=== PATIENT | female | born 1985 ===

== ENCOUNTER 2018-10-16 07:38 | Inpatient (IN) | payer BC ==
[2018-10-16] MEDS ORDERED: Ondansetron 4 MG/2 ML SDV IV PRN (18:57)
[2018-10-16] MEDS ORDERED: Misoprostol 25 MCG (1/4 of 100 MCG) Tab PO PRN (18:57)
[2018-10-16] MEDS ORDERED: Nalbuphine 10 MG/1 ML Vial IVPUSH PRN (18:57)
[2018-10-16] MEDS ORDERED: Misoprostol 200 MCG Tab PO PRN (18:57)
[2018-10-16] MEDS ORDERED: Sodium Chloride 0.9% 10 ML Syringe FLUSH PRN (18:57)
[2018-10-16] MEDS ORDERED: Terbutaline 1 MG/ML SDV SUBCUT PRN (18:57)
[2018-10-16] MEDS ORDERED: Methylergonovine 0.2 MG/1 ML Amp IM PRN (18:57)
[2018-10-16] MEDS ORDERED: Sodium Chloride 0.9% 10 ML SDV IV PRN (18:57)
[2018-10-16] MEDS ORDERED: Water For Irrigation,Sterile 1,000 ML Container IRR PRN (18:57)
[2018-10-16] MEDS ORDERED: Tranexamic Acid 1,000 MG in Sodium Chloride 0.9% 100 ML IV PRN (18:57)
[2018-10-16] MEDS ORDERED: Misoprostol 25 MCG (1/4 of 100 MCG) Tab VAG PRN (18:57)
[2018-10-16] MEDS ORDERED: Carboprost Tromethamine 250 MCG/1 ML Amp IM PRN (18:57)
[2018-10-16] MEDS ORDERED: Lidocaine 1% 50 ML MDV INJECT PRN (18:57)
[2018-10-16] MEDS ORDERED: Oxytocin/0.9 % Sodium Chloride 30 UNIT/500 ML BAG IV SCH ×2 (19:00)
[2018-10-16] MEDS ORDERED: Lactated Ringers 1,000 ML IV SCH (19:00)
--- NOTE | 2018-10-16 20:16 | PCM.LDHP ---
L&D History of Present Illness - General Date of Service: 10/16/18 Admit Problem/Dx: Patient Status Order with Admit Dx/Problem 10/16/18 18:57 Patient Status [ADT] Routine Admission Diagnosis/Problem Admission Diagnosis/Problem -related examination 10/16/18 20:10 33yo EDC 10/13/2018 40 3/7wks, O+, RI, GBS neg. IOL for post dates. Source of Information: Patient History Limitations: Reports: No Limitations - History of Present Illness Improves with: Reports: None Worsens with: Reports: None Associated Symptoms: Reports: N - Related Data Allergies/Adverse Reactions: Allergies Allergy/AdvReac Type Severity Reaction Status Date / Time Penicillins Allergy Other Verified 10/16/18 18:55 H&P Review of Systems - Review of Systems: Review Of Systems: See Below General: Reports: No Symptoms HEENT: Reports: No Symptoms Pulmonary: Reports: No Symptoms Cardiovascular: Reports: No Symptoms Gastrointestinal: Reports: No Symptoms Genitourinary: Reports: No Symptoms Musculoskeletal: Reports: No Symptoms Skin: Reports: No Symptoms Psychiatric: Reports: No Symptoms Neurological: Reports: No Symptoms Hematologic/Lymphatic: Reports: No Symptoms Immunologic: Reports: No Symptoms L&D Exam - Exam Exam: See Below - Vital Signs Weight: 67.132 kg - OB Specific Contraction Intensity: Mild Movement: Active Heart Tones: Present Heart Tones per Min: 140 Heart Rate (FHR) Variability: Moderate (6-25 bmp) Presentation: Vertex - Guzman Score Guzman Score Cervix Position: Midposition Guzman Score Consistency: Soft Guzman Score Effacement: >80% Guzman Score Dilation: 3-4 cm Guzman Score 's Station: -2 Guzman Score Total: 9 - Exam General: Alert, Oriented, Cooperative HEENT: Hearing Intact Lungs: Clear to Auscultation, Normal Respiratory Effort Cardiovascular: Regular Rate, Regular Rhythm, Normal S1, Normal S2 GI/Abdominal Exam: Soft, Non-Tender Rectal Exam: Deferred Genitourinary: Normal external exam, Normal bimanual exam, Cervical dilitation Back Exam: Normal Inspection, Full Range of Motion Extremities: Normal Range of Motion, Non-Tender, No Pedal Edema Skin: Warm, Dry, Intact Neurological: Cranial Nerves Intact, Strength Equal Bilateral, Normal Speech, Normal Tone Psychiatric: Alert, Normal Affect, Normal Mood - Patient Data Lab Results Last 24 hrs: Laboratory Results - last 24 hr 10/16/18 Range/Units 19:20 WBC 5.38 (4.0-11.0) K/uL RBC 4.40 (4.30-5.90) M/uL Hgb 11.6 L (12.0-16.0) g/dL Hct 36.5 (36.0-46.0) % MCV 83.0 (80.0-98.0) fL MCH 26.4 L (27.0-32.0) pg MCHC 31.8 (31.0-37.0) g/dL RDW Std Deviation 48.1 (28.0-62.0) fl RDW Coeff of Hannah 16 H (11.0-15.0) % Plt Count 200 (150-400) K/uL MPV 10.90 (7.40-12.00) fL Nucleated RBC % 0.0 /100WBC Nucleated RBCs # 0 K/uL Result Diagrams: 10/16/18 19:20 - Problem List (1) Supervision of normal IUP (intrauterine ) in primigravida SNOMED Code(s): 34503256, 304749857, 913674958, 541296049 ICD Code: Z34.00 - ENCNTR FOR SUPRVSN OF NORMAL FIRST , UNSP TRIMESTER Status: Acute Current Visit: Yes Qualifiers: Trimester: third trimester Qualified Code(s): Z34.03 - Encounter for supervision of normal first , third trimester Problem List Initiated/Reviewed/Updated: Yes Orders Last 24hrs: Active Orders 24 hr Category Date Time Status Patient Status [ADT] Routine ADT 10/16/18 18:57 Active Bedrest Bathroom Privileges [RC] ASDIRECTED Care 10/16/18 18:57 Active Communication Order [RC] ASDIRECTED Care 10/16/18 18:57 Active Communication Order [RC] ASDIRECTED Care 10/16/18 18:57 Active Communication Order [RC] ASDIRECTED Care 10/16/18 18:57 Active Heart Tones [RC] CONTINUOUS Care 10/16/18 18:57 Active Non Stress Test [RC] PER UNIT ROUTINE Care 10/16/18 18:57 Active May Shower [RC] ASDIRECTED Care 10/16/18 18:57 Active Notify Provider [RC] PRN Care 10/16/18 18:57 Active Notify Provider [RC] PRN Care 10/16/18 18:57 Active Notify Provider [RC] PRN Care 10/16/18 18:57 Active Notify Provider [RC] STAT Care 10/16/18 18:57 Active Oxygen Therapy [RC] ASDIRECTED Care 10/16/18 18:57 Active Up ad Rubi [RC] ASDIRECTED Care 10/16/18 18:57 Active Vaginal Exam [RC] PRN Care 10/16/18 18:57 Active Vaginal Exam [RC] PRN Care 10/16/18 18:57 Active Vital Signs [RC] PER UNIT ROUTINE Care 10/16/18 18:57 Active Vital Signs [RC] PER UNIT ROUTINE Care 10/16/18 18:57 Active Regular Diet [DIET] Diet 10/16/18 Breakfast Active TYPE AND SCREEN [BBK] Routine Lab 10/16/18 19:20 Received Carboprost Tromethamine [Hemabate DS] Med 10/16/18 18:57 Active 250 mcg IM ASDIRECTED PRN Lactated Ringers [Ringers, Lactated] 1,000 ml Med 10/16/18 19:00 Active IV ASDIRECTED Lidocaine 1% [Xylocaine 1%] Med 10/16/18 18:57 Active 50 ml INJECT ONETIME PRN Methylergonovine [Methergine] Med 10/16/18 18:57 Active 0.2 mg IM ASDIRECTED PRN Nalbuphine [Nubain] Med 10/16/18 18:57 Active 10 mg IVPUSH Q1H PRN Ondansetron [Zofran] Med 10/16/18 18:57 Active 4 mg IV Q4H PRN Oxytocin/0.9 % Sodium Chloride [Oxytocin 30 Unit/500 ML Med 10/16/18 19:00 Active -NS] 30 unit in 500 ml IV TITRATE Oxytocin/0.9 % Sodium Chloride [Oxytocin 30 Unit/500 ML Med 10/16/18 19:00 Active -NS] 30 unit in 500 ml IV TITRATE Sodium Chloride 0.9% [Normal Saline] Med 10/16/18 18:57 Active 10 ml IV ASDIRECTED PRN Sodium Chloride 0.9% [Saline Flush] Med 10/16/18 18:57 Active 10 ml FLUSH ASDIRECTED PRN Terbutaline [Brethine] Med 10/16/18 18:57 Active 0.25 mg SUBCUT ASDIRECTED PRN Tranexamic Acid [Cyklokapron] 1,000 mg Med 10/16/18 18:57 Active Sodium Chloride 0.9% [Normal Saline] 100 ml IV ONETIME Water For Irrigation,Sterile [Sterile Water for Med 10/16/18 18:57 Active Irrigation] 1,000 ml IRR ASDIRECTED PRN miSOPROStol [Cytotec] Med 10/16/18 18:57 Active 200 mcg PO ONETIME PRN miSOPROStol [Cytotec] Med 10/16/18 18:57 Active 25 mcg PO Q4H PRN miSOPROStol [Cytotec] Med 10/16/18 18:57 Active 25 mcg VAG Q4H PRN Scalp Electrode [WOMSER] Per Unit Routine Oth 10/16/18 18:57 Ordered Medication Administration Instruction [OM.PC] Q3H Oth 10/16/18 19:00 Ordered Peripheral IV Insertion Adult [OM.PC] Routine Oth 10/16/18 18:57 Ordered Resuscitation Status Routine Resus Stat 10/16/18 18:57 Ordered Medication Orders Carboprost Tromethamine (Hemabate Ds) 250 mcg IM ASDIRECTED PRN PRN Reason: Post Hemorrhage Lactated Ringer's (Ringers, Lactated) 1,000 mls @ 150 mls/hr IV ASDIRECTED [place] Oxytocin/Sodium Chloride (Oxytocin 30 Unit/500 Ml-Ns) 30 unit in 500 mls @ 999 mls/hr IV TITRATE [place] Oxytocin/Sodium Chloride (Oxytocin 30 Unit/500 Ml-Ns) 30 unit in 500 mls @ 2 mls/hr IV TITRATE [place]; Protocol Tranexamic Acid 1,000 mg/ (Sodium Chloride) 110 mls @ 660 mls/hr IV ONETIME PRN PRN Reason: Bleeding Lidocaine HCl (Xylocaine 1%) 50 ml INJECT ONETIME PRN PRN Reason: Laceration repair Methylergonovine Maleate (Methergine) 0.2 mg IM ASDIRECTED PRN PRN Reason: Post Hemorrhage Misoprostol (Cytotec) 200 mcg PO ONETIME PRN PRN Reason: Post Hemorrhage Misoprostol (Cytotec) 25 mcg PO Q4H PRN PRN Reason: Cervical Ripening Misoprostol (Cytotec) 25 mcg VAG Q4H PRN PRN Reason: Cervical Ripening Nalbuphine HCl (Nubain) 10 mg IVPUSH Q1H PRN PRN Reason: Pain (severe 7-10) Ondansetron HCl (Zofran) 4 mg IV Q4H PRN PRN Reason: Nausea/Vomiting Sodium Chloride (Saline Flush) 10 ml FLUSH ASDIRECTED PRN PRN Reason: Keep Vein Open Sodium Chloride (Normal Saline) 10 ml IV ASDIRECTED PRN PRN Reason: IV Use Sterile Water (Sterile Water For Irrigation) 1,000 ml IRR ASDIRECTED PRN PRN Reason: delivery Terbutaline Sulfate (Brethine) 0.25 mg SUBCUT ASDIRECTED PRN PRN Reason: Tacysystole Assessment/Plan Comment:: IOL A: 33yo EDC 10/13/2018 40 3/7wks, O+, RI, GBS neg. IOL for post dates. SVE 3-4/80/-2 soft mid (Guzman 8). AROM scant fluid P: Admit, SROM, pitocin if no labor within 4 hours, Anticipate , Dr Becerril updated.
[2018-10-17] MEDS ORDERED: Oxytocin 10 Units/1 ML SDV ONE (07:46)
--- NOTE | 2018-10-17 08:03 | PCM.DEL ---
L & D Note - General Info Date of Service: 10/17/18 Mother's Due Date: 10/13/18 - Delivery Note Labor: Induced by ARM Delivery Outcome: Livebirth Delivery Method: Spontaneous Vaginal Delivery-Single Infant Delivery Mode: Spontaneous Presentation: Vertex Nuchal Cord: None Anesthesia Type: None Episiotomy Type: None Laceration: None Placenta: Intact, Spontaneous Cord: 3 Vessels Estimated Blood Loss: 150 Resuscitation Needed: No : Stimulated Score 1 min: 8 Score 5 min: 9 Second Stage Interventions: Reports: Pushing, Left Side Delivery Comments (Free Text/Narrative):: of viable female, delivered by RN due to 7cm to delivered in under 20 min. APGARS 8/9, Wt pending, EBL 150cc, intact perineum. Mom and baby stable - General Info Date of Service: 10/17/18 Admission Dx/Problem (Free Text): Patient Status Order with Admit Dx/Problem 10/16/18 18:57 Patient Status [ADT] Routine Admission Diagnosis/Problem Admission Diagnosis/Problem -related examination 10/16/18 20:10 33yo EDC 10/13/2018 40 3/7wks, O+, RI, GBS neg. IOL for post dates. Functional Status: Reports: Pain Controlled - Review of Systems General: Reports: No Symptoms HEENT: Reports: No Symptoms Pulmonary: Reports: No Symptoms Cardiovascular: Reports: No Symptoms Gastrointestinal: Reports: No Symptoms Genitourinary: Reports: No Symptoms Musculoskeletal: Reports: No Symptoms Skin: Reports: No Symptoms Neurological: Reports: No Symptoms Psychiatric: Reports: No Symptoms - Patient Data Weight - Most Recent: 65.771 kg Lab Results Last 24 Hours: Laboratory Results - last 24 hr 10/16/18 10/16/18 Range/Units 19:20 19:20 WBC 5.38 (4.0-11.0) K/uL RBC 4.40 (4.30-5.90) M/uL Hgb 11.6 L (12.0-16.0) g/dL Hct 36.5 (36.0-46.0) % MCV 83.0 (80.0-98.0) fL MCH 26.4 L (27.0-32.0) pg MCHC 31.8 (31.0-37.0) g/dL RDW Std Deviation 48.1 (28.0-62.0) fl RDW Coeff of Hannah 16 H (11.0-15.0) % Plt Count 200 (150-400) K/uL MPV 10.90 (7.40-12.00) fL Nucleated RBC % 0.0 /100WBC Nucleated RBCs # 0 K/uL Blood Type O POSITIVE Antibody Screen NEGATIVE Med Orders - Current: Current Medications Carboprost Tromethamine (Hemabate Ds) 250 mcg IM ASDIRECTED PRN PRN Reason: Post Hemorrhage Lactated Ringer's (Ringers, Lactated) 1,000 mls @ 150 mls/hr IV ASDIRECTED [place] Oxytocin/Sodium Chloride (Oxytocin 30 Unit/500 Ml-Ns) 30 unit in 500 mls @ 999 mls/hr IV TITRATE [place] Oxytocin/Sodium Chloride (Oxytocin 30 Unit/500 Ml-Ns) 30 unit in 500 mls @ 2 mls/hr IV TITRATE [place]; Protocol Tranexamic Acid 1,000 mg/ (Sodium Chloride) 110 mls @ 660 mls/hr IV ONETIME PRN PRN Reason: Bleeding Lidocaine HCl (Xylocaine 1%) 50 ml INJECT ONETIME PRN PRN Reason: Laceration repair Methylergonovine Maleate (Methergine) 0.2 mg IM ASDIRECTED PRN PRN Reason: Post Hemorrhage Misoprostol (Cytotec) 200 mcg PO ONETIME PRN PRN Reason: Post Hemorrhage Misoprostol (Cytotec) 25 mcg PO Q4H PRN PRN Reason: Cervical Ripening Misoprostol (Cytotec) 25 mcg VAG Q4H PRN PRN Reason: Cervical Ripening Nalbuphine HCl (Nubain) 10 mg IVPUSH Q1H PRN PRN Reason: Pain (severe 7-10) Ondansetron HCl (Zofran) 4 mg IV Q4H PRN PRN Reason: Nausea/Vomiting Sodium Chloride (Saline Flush) 10 ml FLUSH ASDIRECTED PRN PRN Reason: Keep Vein Open Sodium Chloride (Normal Saline) 10 ml IV ASDIRECTED PRN PRN Reason: IV Use Sterile Water (Sterile Water For Irrigation) 1,000 ml IRR ASDIRECTED PRN PRN Reason: delivery Terbutaline Sulfate (Brethine) 0.25 mg SUBCUT ASDIRECTED PRN PRN Reason: Tacysystole Discontinued Medications Oxytocin (Pitocin) Confirm Administered Dose 10 unit .ROUTE .[facility] ONE Stop: 10/17/18 07:47 - Exam General: Alert, Oriented, Cooperative, No Acute Distress Lungs: Normal Respiratory Effort GI/Abdominal Exam: Soft, Non-Tender (Female) Exam: Normal External Exam, Normal Bimanual Exam, Vaginal Bleeding. No: Vaginal Lesions, Vaginal Tears Back Exam: Full Range of Motion Extremities: Normal Inspection, Normal Range of Motion, Non-Tender, No Pedal Edema Skin: Warm, Dry, Intact Neurological: No New Focal Deficit, Normal Speech, Normal Tone, Strength Equal Bilateral Psy/Mental Status: Alert, Normal Affect, Normal Mood - Problem List & Annotations (1) Supervision of normal IUP (intrauterine ) in primigravida SNOMED Code(s): 72495536, 743166189, 855506370, 189576446 Code(s): Z34.00 - ENCNTR FOR SUPRVSN OF NORMAL FIRST , UNSP TRIMESTER Status: Acute Priority: High Current Visit: Yes Qualifiers: Trimester: third trimester Qualified Code(s): Z34.03 - Encounter for supervision of normal first , third trimester (2) (normal spontaneous vaginal delivery) SNOMED Code(s): 87693304, 344040519 Code(s): O80 - ENCOUNTER FOR FULL-TERM UNCOMPLICATED DELIVERY Status: Acute Priority: High Current Visit: Yes - Problem List Review Problem List Initiated/Reviewed/Updated: Yes - My Orders Last 24 Hours: My Active Orders 10/16/18 18:57 Patient Status [ADT] Routine Bedrest Bathroom Privileges [RC] ASDIRECTED Communication Order [RC] ASDIRECTED May Shower [RC] ASDIRECTED Notify Provider [RC] PRN Oxygen Therapy [RC] ASDIRECTED Up ad Rubi [RC] ASDIRECTED Vital Signs [RC] PER UNIT ROUTINE Carboprost Tromethamine [Hemabate DS] 250 mcg IM ASDIRECTED PRN Lidocaine 1% [Xylocaine 1%] 50 ml INJECT ONETIME PRN Methylergonovine [Methergine] 0.2 mg IM ASDIRECTED PRN Nalbuphine [Nubain] 10 mg IVPUSH Q1H PRN Ondansetron [Zofran] 4 mg IV Q4H PRN Sodium Chloride 0.9% [Normal Saline] 10 ml IV ASDIRECTED PRN Sodium Chloride 0.9% [Saline Flush] 10 ml FLUSH ASDIRECTED PRN Terbutaline [Brethine] 0.25 mg SUBCUT ASDIRECTED PRN Tranexamic Acid [Cyklokapron] 1,000 mg Sodium Chloride 0.9% [Normal Saline] 100 ml IV ONETIME Water For Irrigation,Sterile [Sterile Water for Irrigation] 1,000 ml IRR ASDIRECTED PRN miSOPROStol [Cytotec] 200 mcg PO ONETIME PRN miSOPROStol [Cytotec] 25 mcg PO Q4H PRN miSOPROStol [Cytotec] 25 mcg VAG Q4H PRN Scalp Electrode [WOMSER] Per Unit Routine Peripheral IV Insertion Adult [OM.PC] Routine Resuscitation Status Routine 10/16/18 19:00 Lactated Ringers [Ringers, Lactated] 1,000 ml IV ASDIRECTED Oxytocin/0.9 % Sodium Chloride [Oxytocin 30 Unit/500 ML-NS] 30 unit in 500 ml IV TITRATE Oxytocin/0.9 % Sodium Chloride [Oxytocin 30 Unit/500 ML-NS] 30 unit in 500 ml IV TITRATE Medication Administration Instruction [OM.PC] Q3H - Plan Plan:: IOL A: 33yo EDC 10/13/2018 40 3/7wks, O+, RI, GBS neg. IOL for post dates. SVE 3-4/80/-2 soft mid (Guzman 8). AROM scant fluid P: Admit, SROM, pitocin if no labor within 4 hours, Anticipate , Dr Becerril updated. Delivery A: viable female, APGARS 8/9, Wt: pending bonding/breast feeding. Intact perineum, EBL 150cc. Mother and baby stable P: Routine pp plan of care
[2018-10-17] MEDS ORDERED: Witch Hazel Medicated Pads 40/Jar TOP PRN (08:06)
[2018-10-17] MEDS ORDERED: Benzocaine/Menthol 20%-0.5% Spray 78 GM Cannister TOP PRN (08:06)
[2018-10-17] MEDS ORDERED: Docusate Sodium 100 MG Cap PO PRN (08:06)
[2018-10-17] MEDS ORDERED: Lanolin 100% Cream 7 GM Tube TOP PRN (08:06)
[2018-10-17] MEDS ORDERED: Bisacodyl 10 MG Supp RECTAL PRN (08:06)
[2018-10-17] MEDS ORDERED: Acetaminophen 500 MG Tab PO PRN ×2 (08:06)
[2018-10-17] MEDS ORDERED: Ibuprofen 400 MG Tab PO PRN (08:06)
[2018-10-17] MEDS ORDERED: Oxytocin 10 Units/1 ML SDV IM PRN (08:06)
[2018-10-17] MEDS: Ibuprofen 800 MG Tab PO PRN ×2 (09:37→16:07)
[2018-10-17] MEDS: oxyCODONE 5 MG Tab PO PRN (19:53)
[2018-10-18] MEDS: oxyCODONE 5 MG Tab PO PRN (02:06)
[2018-10-18] MEDS: Ibuprofen 800 MG Tab PO PRN (02:06)
--- NOTE | 2018-10-18 08:51 | PCM.PNPP ---
- General Info Date of Service: 10/18/18 Functional Status: Reports: Pain Controlled - Review of Systems General: Reports: No Symptoms HEENT: Reports: No Symptoms Pulmonary: Reports: No Symptoms Cardiovascular: Reports: No Symptoms Gastrointestinal: Reports: No Symptoms Genitourinary: Reports: No Symptoms Musculoskeletal: Reports: No Symptoms Skin: Reports: No Symptoms Neurological: Reports: No Symptoms Psychiatric: Reports: No Symptoms - Patient Data Vital Signs - Most Recent: Last Vital Signs Temp 36.4 C 10/18/18 07:48 Pulse 44 L 10/18/18 07:48 Resp 16 10/18/18 07:48 BP 104/53 L 10/18/18 07:48 Pulse Ox 97 10/18/18 07:48 Weight - Most Recent: 65.771 kg Med Orders - Current: Current Medications Acetaminophen (Tylenol Extra Strength) 500 mg PO Q4H PRN PRN Reason: Pain Acetaminophen (Tylenol Extra Strength) 1,000 mg PO Q4H PRN PRN Reason: Pain Benzocaine/Menthol (Dermoplast Pain Relief 20%-0.5% Alpha) 78 gm TOP ASDIRECTED PRN PRN Reason: Perineal Comfort Measure Bisacodyl (Dulcolax) 10 mg RECTAL ONETIME PRN PRN Reason: Constipation Docusate Sodium (Colace) 100 mg PO BID PRN PRN Reason: Constipation Emollient Ointment (Lansinoh Hpa) 0 gm TOP ASDIRECTED PRN PRN Reason: Sore Nipples Ibuprofen (Motrin) 400 mg PO Q4H PRN PRN Reason: Pain Ibuprofen (Motrin) 800 mg PO Q6H PRN PRN Reason: Pain Last Admin: 10/18/18 02:06 Dose: 800 mg Oxycodone HCl (Oxycodone) 5 mg PO Q2H PRN PRN Reason: Pain Last Admin: 10/18/18 02:06 Dose: 5 mg Oxytocin (Pitocin) 10 unit IM ASDIRECTED PRN PRN Reason: Bleeding Witch Diana (Tucks) 1 pad TOP ASDIRECTED PRN PRN Reason: comfort care Discontinued Medications Carboprost Tromethamine (Hemabate Ds) 250 mcg IM ASDIRECTED PRN PRN Reason: Post Hemorrhage Lactated Ringer's (Ringers, Lactated) 1,000 mls @ 150 mls/hr IV ASDIRECTED [place] Oxytocin/Sodium Chloride (Oxytocin 30 Unit/500 Ml-Ns) 30 unit in 500 mls @ 999 mls/hr IV TITRATE [place] Oxytocin/Sodium Chloride (Oxytocin 30 Unit/500 Ml-Ns) 30 unit in 500 mls @ 2 mls/hr IV TITRATE [place]; Protocol Tranexamic Acid 1,000 mg/ (Sodium Chloride) 110 mls @ 660 mls/hr IV ONETIME PRN PRN Reason: Bleeding Lidocaine HCl (Xylocaine 1%) 50 ml INJECT ONETIME PRN PRN Reason: Laceration repair Methylergonovine Maleate (Methergine) 0.2 mg IM ASDIRECTED PRN PRN Reason: Post Hemorrhage Misoprostol (Cytotec) 200 mcg PO ONETIME PRN PRN Reason: Post Hemorrhage Misoprostol (Cytotec) 25 mcg PO Q4H PRN PRN Reason: Cervical Ripening Misoprostol (Cytotec) 25 mcg VAG Q4H PRN PRN Reason: Cervical Ripening Nalbuphine HCl (Nubain) 10 mg IVPUSH Q1H PRN PRN Reason: Pain (severe 7-10) Ondansetron HCl (Zofran) 4 mg IV Q4H PRN PRN Reason: Nausea/Vomiting Oxytocin (Pitocin) Confirm Administered Dose 10 unit .[facility]TE [facility] ONE Stop: 10/17/18 07:47 Sodium Chloride (Saline Flush) 10 ml FLUSH ASDIRECTED PRN PRN Reason: Keep Vein Open Sodium Chloride (Normal Saline) 10 ml IV ASDIRECTED PRN PRN Reason: IV Use Sterile Water (Sterile Water For Irrigation) 1,000 ml IRR ASDIRECTED PRN PRN Reason: delivery Terbutaline Sulfate (Brethine) 0.25 mg SUBCUT ASDIRECTED PRN PRN Reason: Tacysystole - Interaction Disposition, : [place] at Bedside Interaction: Holding Infant Feeding: Attempted ; Nursed Fair/Poor Support Person: Friend - Recovery Exam Fundal Tone: Firm Fundal Level: 1 Fingerbreadths Below Umbilicus Fundal Placement: Midline Lochia Amount: Scant Lochia Color: Rubra/Red Perineum Description: Intact, Minimal Bruising/Swelling Episiotomy/Laceration: None Bladder Status: Voiding - Exam General: Alert, Oriented HEENT: Pupils Equal Neck: Supple Lungs: Clear to Auscultation, Normal Respiratory Effort Cardiovascular: Regular Rate, Regular Rhythm GI/Abdominal Exam: Normal Bowel Sounds, Soft, Non-Tender, No Organomegaly, No Distention, No Abnormal Bruit, No Mass, Pelvis Stable Extremities: Normal Inspection, Normal Range of Motion, Non-Tender, No Pedal Edema, Normal Capillary Refill Skin: Warm, Dry, Intact Wound/Incisions: Healing Well Neurological: No New Focal Deficit Psy/Mental Status: Alert, Normal Affect, Normal Mood - Problem List Review Problem List Initiated/Reviewed/Updated: Yes - Assessment Assessment:: Status post uncomplicated normal spontaneous vaginal delivery she is doing well with planning to be discharged today - Plan Plan:: IOL A: 33yo EDC 10/13/2018 40 3/7wks, O+, RI, GBS neg. IOL for post dates. SVE 3-4/80/-2 soft mid (Guzman 8). AROM scant fluid P: Admit, SROM, pitocin if no labor within 4 hours, Anticipate , Dr Becerril updated. Delivery A: viable female, APGARS 8/9, Wt: pending bonding/breast feeding. Intact perineum, EBL 150cc. Mother and baby stable P: Routine pp plan of care
== END 2018-10-18 10:50 | disposition home or self-care (01) | DRG 560 ==
LOC: MW.OB 07:38 → OBSVTOIN 10-17 07:38 → MW.OB 10-17 11:18
PROVIDERS: ADMIT Obstetrics & Gynecology; ATTEND Obstetrics & Gynecology
PROC: 10E0XZZ Delivery of Products of Conception, External Approach (ICD-10-PCS; principal; 2018-10-17)
PROC: 10907ZC Drainage of Amniotic Fluid, Therapeutic from Products of Conception, Via Natural or Artificial Opening (ICD-10-PCS; 2018-10-17)
PROC: 4A1HXCZ Monitoring of Products of Conception, Cardiac Rate, External Approach (ICD-10-PCS; 2018-10-17)
DX: O48.0 Post-term pregnancy (principal); Z3A.40 40 weeks gestation of pregnancy; Z37.0 Single live birth; O69.81X0 Labor and delivery complicated by cord around neck, without compression, not applicable or unspecified
CPT/HCPCS: 36415; 59025; 59409; 85027; 86850; 86900; 86901; A9270-GY